=== PATIENT | male | born 1975 | race Caucasian/White ===

== ENCOUNTER → 2018-10-11 | Outpatient (CLI) | payer OTHER ==
--- NOTE | ~2018-10-11 | EXE ---
[facility] [employer] [place] [address] STRESS ECHOCARDIOGRAM Name: ANALI RIVERO Room #: REG [facility]#: [id number] Admission: 10/11/18 Attend Phys: Braydon Butler MD Discharge: Date of : 71 Date of Service: 10/11/18 1454 Report #: [id number] THIS REPORT FOR: //name// APPROVED REPORT Study performed: 10/11/2018 13:44:47 Exam: Stress Echocardiogram Indication: HTN, , Screening for CAD Patient Location: Out-Patient Stress Nurse: Vikki Matamoros RN Status: routine Ht: 5 ft 8 in HR: 100 bpm BP: 158/80 mmHg Medical History Medical History: HTN Medications: Lisinopril, , Propranolol Allergies: No known drug allergies Cardiac Risk Factors: HTN, FHX of CAD Procedure The patient underwent an Exercise Stress Test using the Bhavesh Protocol. Blood pressure, heart rate, and EKG were monitored. An Echocardiogram was performed by pharmacy order entry technician in four stages in quad fashion. At peak stress, four selected images were obtained and placed side by side with resting images for comparison. Stress Test Details Stress Test: Exercise stress testing was performed using a Bhavesh protocol. HR Resting HR: 100 bpm Max Heart Rate (APMHR): 175 bpm Max HR Achieved: 184 bpm Target HR (85% APMHR): 148 bpm % of APMHR: 105 Recovery HR: 131 bpm HR response to stress: Normal HR response to stress BP Resting BP: 158/80 mmHg Max BP: 190/85 mmHg Recovery BP: 130/70 mmHg [facility] [address] [place] [address] STRESS ECHOCARDIOGRAM Name: ANALI RIVERO Room #: REG [facility]#: [id number] Admission: 10/11/18 Attend Phys: Braydon Butler MD Discharge: Date of : 71 Date of Service: 10/11/18 1454 Report #: [id number] Resting ECG: Sinus Rhythm, nonspecific ST-T abnormalities Stress ECG: Sinus Rhythm, nonspecific ST-T abnormalities ST Change: Non-ischemic Clinical Reason for Termination: Completed protocol Stress Symptoms: Dyspnea, Fatigue Exercise duration: 9 min 31 sec Highest Stage Achieved: Stage 4: 4.2 mph at 16% grade. Exercise capacity: 11.7 METs Pre-Stress Echo The resting Echocardiogram showed normal left ventricular contractility with an estimated Ejection Fraction of about 60-65%. Normal wall motion in all segments on baseline images. Post-Stress Echo The stress Echocardiogram showed normal left ventricular contractility with an estimated Ejection Fraction of about 70%. Normal augmentation of wall motion in all segments on post stress images. Clinical Normal augmentation of myocardial wall segments using a 17 segment model. No clinical or ECG evidence for ischemia. Conclusion Clinical Response: Non-ischemic Exercise Capacity: Average Stress ECG Response: Non-ischemic Stress Echo Images: Non-ischemic The left ventricle is normal in size and wall thickness in both the rest and stress images. Other Information Study Quality: Adequate <Conclusion> [facility] [address] [address] STRESS ECHOCARDIOGRAM Name: ANALI RIVERO Room #: REG [facility]#: [id number] Admission: 10/11/18 Attend Phys: Braydon Butler MD Discharge: Date of : 71 Date of Service: 10/11/18 1454 Report #: [id number] The left ventricle is normal in size and wall thickness in both the rest and stress images. <ELECTRONICALLY SIGNED> By: Braydon Butler MD 10/11/18 1454 1454 145 Braydon Butler MD /INF
== END ==
LOC: CV 13:09
DX: I10 Essential (primary) hypertension (principal); R06.00 Dyspnea, unspecified